=== PATIENT | female | born 1985 | race Two or more races ===

== ENCOUNTER 2022-12-21 09:21 | Inpatient (IN) | payer MEDICAID ==
[~2022-12-21] VITALS: Ht 165.1 cm; Wt 125.3 kg
[2022-12-21 10:13] LABS: Albumin 3.8 g/dL (3.4-5.0); Calcium 9.3 mg/dL (8.5-10.1); Potassium 4.2 mmol/L (3.5-5.1)
[2022-12-21 10:14] LABS: Basophils # (auto) 0.1 10 ^3/uL (0-0.2); Basophils % (auto) 0.8 % (0.0-2.0); Eosinophils # (auto) 0.1 10 ^3/uL (0-0.8); Eosinophils % (auto) 0.6 % (0.0-7.0); Hematocrit 45.2 % (36.0-46.0); Hemoglobin 15.4 g/dL (12.2-16.2); Lymphocytes # (auto) 3.2 10 ^3/uL (0.4-5.4); Lymphocytes % (auto) 23.1 % (10.0-50.0); Mean Corpuscular Hemoglobin 29.9 pg (28.0-32.0); Mean Corpuscular Hgb Conc. 34.2 g/dL (32.0-36.0); Mean Corpuscular Volume 87.4 fL (80.0-100.0); Monocytes # (auto) 0.8 10 ^3/uL (0-1.3); Neutrophils # (auto) 9.6 10 ^3/uL (1.6-8.6); Neutrophils % (auto) 69.5 % (37.0-80.0); Nucleated Red Blood Cells % 0.1 %; Red Blood Cells 5.18 10^6/uL (4.0-5.20); Red Cell Distribution Width 12.6 % (11.8-14.3); White Blood Cell 13.8 10^3/uL (4.4-10.8)
[2022-12-21] MEDS ORDERED: ONDANSETRON HCL 4 MG/2 ML VIAL IV ONE (10:15)
[2022-12-21] MEDS ORDERED: SODIUM CHLORIDE 0.9% 1,000 ML IV ONE ×3 (10:15→13:15)
[2022-12-21] MEDS ORDERED: MORPHINE SULFATE 4 MG/ML SYR/VIAL IV ONE (10:15)
[2022-12-21 10:16] LABS: BUN/Creatinine Ratio 13.7 (10.0-20.0); Bilirubin, Total 0.6 mg/dL (0.2-1.0); Total Protein 7.7 g/dL (6.4-8.2)
[2022-12-21] MEDS ORDERED: KETOROLAC TROMETH 30 MG/ML 1ML VIAL IV ONE (12:45)
[2022-12-21] MEDS ORDERED: FUROSEMIDE 40 MG/4 ML VIAL IV ONE (13:15)
[2022-12-21 14:40] LABS: Urine Bacteria NONE SEEN /hpf (None Seen); Urine Blood TRACE /uL (Negative); Urine Specific Gravity 1.011 (1.001-1.035); Urine WBC 25 /hpf (0 - 5)
[2022-12-21] MEDS ORDERED: NITROGLYCERIN 0.4 MG SL TAB SL PRN (15:00)
[2022-12-21] MEDS ORDERED: DOCUSATE SOD 100 MG CAP PO PRN (15:00)
[2022-12-21] MEDS ORDERED: HYDROcodone-ACET 5/325MG TAB PO PRN (15:00)
[2022-12-21] MEDS ORDERED: MORPHINE SULFATE INJ 2 MG/ml SYRG IV PRN (15:00)
[2022-12-21] MEDS ORDERED: TAMSULOSIN HYDROCHLORIDE 0.4 MG CAP PO ONE (15:30)
[2022-12-21 18:43] VITALS: BP_SYST 128; BP_SYST 138; BP_DIAS 75; BP_DIAS 91
[2022-12-21] MEDS: KETOROLAC TROMETH 30 MG/ML 1ML VIAL IV PRN (19:41)
[2022-12-21 20:00] VITALS: BP 122/75
[2022-12-21] MEDS: ONDANSETRON HCL 4 MG/2 ML VIAL IV PRN (21:30)
[2022-12-21 22:00] VITALS: BP 128/75
[2022-12-22] MEDS: ACETAMINOPHEN 325 MG TAB PO PRN ×2 (00:22→08:07)
[2022-12-22] MEDS: KETOROLAC TROMETH 30 MG/ML 1ML VIAL IV PRN ×2 (03:38→11:31)
[2022-12-22 05:00] VITALS: BP 138/81
[2022-12-22 06:31] LABS: Basophils # (auto) 0 10 ^3/uL (0-0.2); Basophils % (auto) 0.1 % (0.0-2.0); Eosinophils # (auto) 0 10 ^3/uL (0-0.8); Eosinophils % (auto) 0.3 % (0.0-7.0); Hematocrit 38.6 % (36.0-46.0); Hemoglobin 13.5 g/dL (12.2-16.2); Lymphocytes # (auto) 1.1 10 ^3/uL (0.4-5.4); Lymphocytes % (auto) 7.4 % (10.0-50.0); Mean Corpuscular Hemoglobin 30.8 pg (28.0-32.0); Mean Corpuscular Hgb Conc. 35.1 g/dL (32.0-36.0); Mean Corpuscular Volume 87.7 fL (80.0-100.0); Monocytes # (auto) 0.4 10 ^3/uL (0-1.3); Monocytes % (auto) 2.9 % (0.0-12.0); Neutrophils # (auto) 12.8 10 ^3/uL (1.6-8.6); Neutrophils % (auto) 89.3 % (37.0-80.0); Nucleated Red Blood Cells % 0.1 %; Red Blood Cells 4.39 10^6/uL (4.0-5.20); Red Cell Distribution Width 12.9 % (11.8-14.3); White Blood Cell 14.3 10^3/uL (4.4-10.8)
[2022-12-22 07:09] LABS: Albumin 3.1 g/dL (3.4-5.0); BUN/Creatinine Ratio 10.5 (10.0-20.0); Calcium 8.3 mg/dL (8.5-10.1); Potassium 3.9 mmol/L (3.5-5.1)
[2022-12-22 07:12] LABS: Bilirubin, Total 0.6 mg/dL (0.2-1.0); Total Protein 6.6 g/dL (6.4-8.2)
[2022-12-22] MEDS: cefTRIAXone 1GM/50ML D5W 50 ML IV SCH (08:07)
[2022-12-22] MEDS: PANTOPRAZOLE 40 MG/10 ML VIAL INJ IV SCH (08:07)
[2022-12-22 08:37] VITALS: BP 123/72
[2022-12-22 12:35] VITALS: BP 122/81
[2022-12-22] MEDS: hydrOXYzine 25 MG TAB or CAP PO PRN (15:52)
[2022-12-22 16:58] VITALS: BP 100/53
[2022-12-22 22:00] VITALS: BP 125/66
[2022-12-23 05:00] VITALS: BP 103/60
[2022-12-23 08:47] LABS: Basophils # (auto) 0 10 ^3/uL (0-0.2); Basophils % (auto) 0.1 % (0.0-2.0); Eosinophils # (auto) 0.2 10 ^3/uL (0-0.8); Eosinophils % (auto) 0.8 % (0.0-7.0); Hematocrit 37.8 % (36.0-46.0); Hemoglobin 13.1 g/dL (12.2-16.2); Lymphocytes # (auto) 1.6 10 ^3/uL (0.4-5.4); Lymphocytes % (auto) 7.2 % (10.0-50.0); Mean Corpuscular Hemoglobin 30.4 pg (28.0-32.0); Mean Corpuscular Hgb Conc. 34.6 g/dL (32.0-36.0); Mean Corpuscular Volume 87.8 fL (80.0-100.0); Monocytes % (auto) 4.6 % (0.0-12.0); Neutrophils % (auto) 87.3 % (37.0-80.0); Red Cell Distribution Width 12.8 % (11.8-14.3); White Blood Cell 21.7 10^3/uL (4.4-10.8)
[2022-12-23] MEDS: cefTRIAXone 1GM/50ML D5W 50 ML IV SCH (08:57)
[2022-12-23] MEDS: PANTOPRAZOLE 40 MG/10 ML VIAL INJ IV SCH (08:57)
[2022-12-23 09:01] VITALS: BP 124/75
[2022-12-23] MEDS: ACETAMINOPHEN 325 MG TAB PO PRN ×2 (09:25→16:10)
[2022-12-23] MEDS: ONDANSETRON HCL 4 MG/2 ML VIAL IV PRN (11:12)
[2022-12-23 12:10] VITALS: BP 135/86
[2022-12-23 15:22] LABS: BUN/Creatinine Ratio 10.1 (10.0-20.0); Calcium 8.8 mg/dL (8.5-10.1); Potassium 3.8 mmol/L (3.5-5.1)
[2022-12-23 16:05] VITALS: BP 137/78
[2022-12-23] MEDS: hydrOXYzine 25 MG TAB or CAP PO PRN (17:31)
[2022-12-23] MEDS: KETOROLAC TROMETH 30 MG/ML 1ML VIAL IV PRN (19:51)
[2022-12-23] MEDS: NITROFURANTOIN 100 mg CAP PO SCH (22:31)
[2022-12-23 22:33] VITALS: BP 118/61
[2022-12-24] MEDS: ACETAMINOPHEN 325 MG TAB PO PRN ×2 (04:05→10:26)
[2022-12-24 05:41] VITALS: BP 113/50
[2022-12-24] MEDS ORDERED: MANNITOL FTV 25% 12.5 GM/50 ML 50 ML IV ONE (08:00)
[2022-12-24 09:00] VITALS: BP 106/66
[2022-12-24] MEDS: PANTOPRAZOLE 40 MG/10 ML VIAL INJ IV SCH (09:03)
[2022-12-24] MEDS: NITROFURANTOIN 100 mg CAP PO SCH (09:04)
[2022-12-24] MEDS ORDERED: ESCI10TA PO (11:05)
[2022-12-24] MEDS ORDERED: NITR100C6 PO (11:05)
[2022-12-24] MEDS ORDERED: HYDR1CAP27 PO (11:05)
== END 2022-12-24 12:51 | disposition home or self-care (01) | DRG 463 ==
LOC: EDBD 09:21 → ER 09:21 → OVERFLOW 15:08 → WEST WING 18:42
PROVIDERS: ADMIT Nurse Practitioner Family; ATTEND Internal Medicine Pulmonary Disease
DX: N13.6 Pyonephrosis (principal); F33.1 Major depressive disorder, recurrent, moderate; E11.9 Type 2 diabetes mellitus without complications; F43.10 Post-traumatic stress disorder, unspecified; K80.20 Calculus of gallbladder without cholecystitis without obstruction; F41.9 Anxiety disorder, unspecified; Z20.822 Contact with and (suspected) exposure to COVID-19; Z83.3 Family history of diabetes mellitus
CPT/HCPCS: 36415; 74018; 74176; 76775; 80048; 80053; 81001; 83690; 84702; 85025; 87086; 87426; 96361; 96374; 96375; C9113; G0378; J0696; J1885; J2405